=== PATIENT | male | born 1980 | race Caucasian/White ===

== ENCOUNTER 2019-06-29 10:10 | Emergency (ER) | payer OTHER ==
[~2019-06-29] VITALS: Ht 170.2 cm; Wt 90.9 kg
[2019-06-29 10:11] VITALS: BP 117/87
--- NOTE | 2019-06-29 10:20 | NUR ---
Flu swab collected.
== END 2019-06-29 10:43 | disposition home or self-care (01) ==
LOC: ER 10:10
DX: J06.9 Acute upper respiratory infection, unspecified (principal); Z20.828 Contact with and (suspected) exposure to other viral communicable diseases; Z86.19 Personal history of other infectious and parasitic diseases
CPT/HCPCS: 36415; 87502; 87503; 87635; 99283

== ENCOUNTER 2022-01-28 13:38 | Emergency (ER) | payer OTHER ==
[~2022-01-28] VITALS: Ht 170.2 cm; Wt 100.0 kg
[2022-01-28 13:48] VITALS: BP 142/87
[2022-01-28] MEDS ORDERED: polymyxin B sulf/tmp ophth drops 10ml RIGHTEYE ONE (14:55)
== END 2022-01-28 16:03 | disposition home or self-care (01) ==
LOC: ER 13:38
DX: H10.9 Unspecified conjunctivitis (principal); Z77.21 Contact with and (suspected) exposure to potentially hazardous body fluids; Z60.2 Problems related to living alone; Z86.19 Personal history of other infectious and parasitic diseases
CPT/HCPCS: 99283